=== PATIENT | female | born 1930 | race Caucasian/White ===

== ENCOUNTER → 2016-12-06 | Outpatient (CLI) | payer MEDICARE, BC ==
[~2016-12-06] MED LIST: BACL10TA PO; CALC-984 PO; CARB15DR3 BOTH EYES; DOCU-118 PO; GABA-305 PO; GABA-338 PO; GABA100C PO; HYDR-3989 PO; HYDR-4072 PO; HYDR-4246 PO; HYDR200T PO; MAG355OR87 PO; MENT118G TOP; OMEP10CA4 PO; ONDA4TAB4 PO; POLY17PO3 PO; POLY17PO6 PO; POTA10TA16 PO
[2016-12-06 07:19] LABS: ANION GAP 10 MEQ/L (5-15); BUN/CREATININE RATIO 21 RATIO (6-26); CALCIUM 9.3 MG/DL (8.4-10.2); CHLORIDE 99 MEQ/L (98-107); CO2 - CARBON DIOXIDE 29 MEQ/L (22-30); CREATININE 0.7 MG/DL (0.7-1.2); GLOMERULAR FILTRATION RATE 80; GLUCOSE 93 MG/DL (65-110); POTASSIUM 4.3 MEQ/L (3.6-5); SODIUM 138 MEQ/L (134-144)
== END ==
LOC: LABNH.PM 02:04
PROVIDERS: ATTEND Family Medicine
DX: Z51.81 Encounter for therapeutic drug level monitoring (principal)
CPT/HCPCS: 36415; 80048; P9604